=== PATIENT | female | born 1975 | race Two or more races ===

== ENCOUNTER 2020-04-18 10:33 | Emergency (ER) | payer OTHER ==
[~2020-04-18] VITALS: Ht 157.5 cm; Wt 63.5 kg
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
[2020-04-18 10:52] VITALS: BP 152/91
== END 2020-04-18 10:52 | disposition left against medical advice (07) ==
LOC: ER 10:37
DX: R45.1 Restlessness and agitation (principal)

== ENCOUNTER 2020-04-18 11:25 | Emergency (ER) | payer OTHER ==
[~2020-04-18] VITALS: Ht 157.5 cm; Wt 64.4 kg
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
--- NOTE | 2020-04-18 11:48 | NUR ---
DR GREGORY AT BEDSIDE
--- NOTE | 2020-04-18 12:01 | NUR ---
TANK WELDER AT BEDSIDE FOR BLOOD DRAW
[2020-04-18 12:16] LABS: MONOCYTES # (AUTO) 0.6 /CMM (0.1-1.30)
[2020-04-18 12:19] LABS: BASOPHILS % (AUTO) 0.2 % (0.0-2.0); CARBON DIOXIDE 24 mmol/L (21-32); CHLORIDE 96 mmol/L (98-107); CREATININE 1.7 mg/dL (0.6-1.3); GLUCOSE 125 mg/dL (74-106); HEMATOCRIT 33 % (33-45); LYMPHOCYTES # (AUTO) 0.5 /CMM (0.8-4.8); LYMPHOCYTES % (AUTO) 3.2 % (20.0-44.0); MEAN CORPUSCULAR HGB CONC 30 g/dl (31.0-36.0); MEAN CORPUSCULAR VOLUME 73 fL (82-100); MONOCYTES % (AUTO) 4.1 % (2.0-12.0); NEUTROPHILS # (AUTO) 13.9 /CMM (1.8-8.9); NEUTROPHILS % (AUTO) 92.5 % (43.0-81.0); PLATELET COUNT (AUTO) 262 /CMM (150-450); RED BLOOD CELL COUNT(AUTO) 4.51 MIL/uL (4.0-5.2); SODIUM SERUM 133 mmol/L (136-145); UREA NITROGEN, BLOOD 24 mg/dL (7-18); WHITE BLOOD COUNT (AUTO) 15.1 K/uL (4.3-11.0)
--- NOTE | 2020-04-18 12:20 | NUR ---
URINE SAMPLE COLLECTED AND SENT TO LAB
[2020-04-18 12:25] LABS: ACETAMINOPHEN 0 ug/ml (10-30); ALANINE AMINOTRANSFERASE 48 U/L (12-78); ALBUMIN 4.4 g/dL (3.4-5.0); ALCOHOL, BLOOD < 3 mg/dL (0-0); ALKALINE PHOSPHATASE 68 U/L (46-116); ASPARTATE AMINOTRANSFERASE 52 U/L (15-37); BILIRUBIN,DIRECT 0.2 mg/dL (0.0-0.2); BILIRUBIN,TOTAL 0.7 mg/dL (0.2-1.0); SALICYLATE 0.5 mg/dL (2.8-20.0); TOTAL PROTEIN, SERUM 8.4 g/dL (6.4-8.2)
[2020-04-18 12:35] LABS: APPEARANCE,URINE Clear (CLEAR); BILIRUBIN,URINE SMALL (NEGATIVE); BLOOD, URINE Trace-lysed Ery/uL (NEGATIVE); COLOR,URINE Yellow (YELLOW); KETONES,URINE 15 (NEGATIVE); LEUKOCYTE ESTERASE ,URINE Negative (NEGATIVE); NITRITE, URINE Negative (NEGATIVE); PH,URINE 5.5 (5.0-8.0); PROTEIN,URINE 30 mg/dl (NEGATIVE); UGLUCOSE Negative (NEGATIVE)
[2020-04-18 12:38] LABS: BACTERIA,URINE Few /HPF (None Seen); SQUAMOUS EPITHELIAL CELL,UR Few /HPF (None Seen)
[2020-04-18] MEDS ORDERED: IV NS 0.9% 1,000 ML IV ONE (13:30)
[2020-04-18] MEDS ORDERED: POTASSIUM CHLORIDE 20 MEQ TAB.PRT.SR PO ONE ×2 (13:30→13:52)
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
[2020-04-18] MEDS ORDERED: LORAZEPAM 1 MG TABLET ONE (15:28)
[2020-04-18] MEDS ORDERED: LORAZEPAM 1 MG TABLET PO ONE (15:30)
--- NOTE | 2020-04-18 15:44 | NUR ---
IV removed. Catheter intact and site benign. Pressure and 4x4 applied to site. No bleeding noted.Patient discharged to home in stable condition. Written and verbal after care instructions given. Patient verbalizes understanding of instruction.
[2020-04-18 15:45] VITALS: BP 147/96
== END 2020-04-18 15:45 | disposition home or self-care (01) ==
LOC: ER 11:32
DX: R45.6 Violent behavior (principal); R45.1 Restlessness and agitation; F19.10 Other psychoactive substance abuse, uncomplicated; F15.10 Other stimulant abuse, uncomplicated; N28.9 Disorder of kidney and ureter, unspecified; E87.6 Hypokalemia; Z98.890 Other specified postprocedural states
CPT/HCPCS: 36415; 80048; 80076; 80305; 80307; 80329; 81001; 85025; 99283; G0480; J7030; 81000-TC